=== PATIENT | male | born 1980 | race African-American/Black ===

== ENCOUNTER 2023-04-28 19:15 | Emergency (ER) | payer SELFPAY ==
[~2023-04-28] VITALS: Ht 185.4 cm; Wt 85.8 kg
[2023-04-28 19:19] VITALS: BP 131/86; TEMP 98.6
[2023-04-28 20:57] VITALS: PULSE 74
== END 2023-04-28 20:58 | disposition home or self-care (01) ==
LOC: COL.ER 19:15
DX: M25.562 Pain in left knee (principal); Z59.00 Homelessness unspecified; X58.XXXA Exposure to other specified factors, initial encounter; Y93.01 Activity, walking, marching and hiking

== ENCOUNTER 2023-04-29 21:20 | Emergency (ER) | payer SELFPAY ==
[~2023-04-29] VITALS: Ht 185.4 cm; Wt 84.5 kg
[2023-04-29 21:22] VITALS: BP 128/80; TEMP 98.6
[2023-04-29 22:23] VITALS: PULSE 78
== END 2023-04-29 22:23 | disposition home or self-care (01) ==
LOC: COL.ER 21:20
DX: M25.562 Pain in left knee (principal); Z59.01 Sheltered homelessness